=== PATIENT | male | born 2000 | race Caucasian/White ===

== ENCOUNTER 2024-06-30 02:46 | Day surgery (SDC) | payer OTHER ==
[2024-06-30] VITALS (233 sets, daily range): BP systolic 109–159; BP diastolic 50–113
[~2024-06-30] VITALS: Ht 180.3 cm; Wt 66.5 kg
--- NOTE | 2024-06-30 07:00 | NUR ---
Arrival & Pre-treatment Patient arrived to the ANR suite, identification and demographics confirmed. Patient to room 7, AAO, ambulatory, vitals obtained, ID/allergy/fall bands placed, changed into hospital gown, MIRIAM hose, and non-slip socks. Procedure and timeline explained for treatment and discharge. All questions answered and the patient presents no concerns at this time. V/S assessed, call light is near. Dr. Mart telephoned with patient intake information including usage, dose, last dose/time taken and initial vital signs. Patient history and allergies reviewed with MD. Orders received for 10mg PO Valium and 0.3mg PO Clonidine now. Will reassess per protocol and update MD with assessment and vitals.
[2024-06-30] MEDS ORDERED: FAMOTIDINE 20 MG/TAB PO PRN (07:30)
[2024-06-30] MEDS ORDERED: SCOPOLAMINE 1.5 MG DIS TD PRN (07:30)
[2024-06-30] MEDS ORDERED: cloNIDine HCL 0.1 MG/TAB PO PRN (07:30)
[2024-06-30] MEDS ORDERED: LACTATED RINGER'S 1,000 ML IV PRN ×3 (07:30→19:00)
[2024-06-30] MEDS ORDERED: CYANOCOBALAMIN 500 MCG/TAB ( B12) PO PRN (07:30)
[2024-06-30] MEDS ORDERED: diazePAM 5 MG/TAB PO PRN ×2 (07:30→08:30)
[2024-06-30] MEDS ORDERED: PANTOPRAZOLE SODIUM Sesquihydr 40 MG/TAB PO PRN (07:30)
[2024-06-30] MEDS ORDERED: ALBUTEROL SULFATE 2.5 MG VIAL IN PRN (07:30)
--- NOTE | 2024-06-30 07:30 | NUR ---
Patient medicated per MD orders. In addition to Clonidine and Valium, patient received 1000 mcg B12 PO, 20 mg Pepcid PO, and Scopolamine TD patch. Medication indication and education provided prior to adminstration.
[2024-06-30] MEDS ORDERED: ASCORBIC ACID 4,000 MG in SODIUM CHLORIDE 0.9% 1,000 ML IV SCH (08:00)
[2024-06-30 08:36] LABS: BASO% 0.1 % (0-3); HEMATOCRIT 38.2 % (39.0-50.0); HEMOGLOBIN 12.8 g/dl (14.0-18.0); IMMATURE GRANULOCYTES 0.1 % (0.0-5.0); LYMPH% 14.8 % (15-41); MEAN CELL VOLUME 87.2 fL CALC (80.0-100.0); MEAN CORPUSCULAR HGB 29.2 pG CALC (26.0-32.0); MEAN CORPUSCULAR HGB CONC 33.5 g/dL CAL (32.0-36.0); MONO% 6.5 % (2-13); NEUT# 5.44 thou/uL (1.82-7.42); NEUT% 78.5 % (42-76); RED BLOOD COUNT 4.38 mill/uL (4.70-6.10); RED CELL DISTRI WIDTH 12.8 % (11.5-15.5)
[2024-06-30] MEDS ORDERED: XANAX0.25 MG PO (08:48)
[2024-06-30] MEDS ORDERED: STERILE WATER FOR IRRIGATION 1,000 ML BTL IR PRN (08:55)
[2024-06-30] MEDS ORDERED: THIAMINE HCL 100 MG/ML 2ML VIAL IV PRN (08:55)
[2024-06-30] MEDS ORDERED: DiphenhydrAMINE HCL 50 MG/ML SDV IV PRN (08:55)
[2024-06-30] MEDS ORDERED: SUCCINYLCHOLINE CHLORIDE 20 MG/ML 10ML VIAL IV PRN (08:55)
[2024-06-30] MEDS ORDERED: LIDOCAINE HCL 1% (10MG/ML) 100 MG/10 ML MDV VT PRN ×2 (08:55)
[2024-06-30] MEDS ORDERED: MAGNESIUM SULFATE HEPTAHYDRATE 100 ML IV PRN (08:55)
[2024-06-30] MEDS ORDERED: LIDOCAINE HCL 1% (10MG/ML) 100 MG/10 ML MDV IV PRN (08:55)
[2024-06-30] MEDS ORDERED: DEXAMETHASONE SODIUM PHOSPHATE PF 10 MG/ML SDV IV PRN ×2 (08:55→19:00)
[2024-06-30] MEDS ORDERED: diazePAM 5 MG/TAB VT PRN (08:55)
[2024-06-30] MEDS ORDERED: cloNIDine HYDROCHLORIDE 100 MCG/ML 10 ML INJ IV PRN (08:55)
[2024-06-30] MEDS ORDERED: ONDANSETRON HCl 4 MG/2 ML SDV IV PRN ×3 (08:55→19:00)
[2024-06-30] MEDS ORDERED: OCTREOTIDE ACETATE 100 MCG/VIAL SDV SC PRN (08:55)
[2024-06-30] MEDS ORDERED: PROPOFOL 10 MG/ML 100ML VIAL IV PRN (08:55)
[2024-06-30] MEDS ORDERED: cloNIDine HCL 0.1 MG/TAB VT PRN (08:55)
[2024-06-30] MEDS ORDERED: NALTREXONE HCL 50 MG/TAB VT PRN (08:55)
[2024-06-30] MEDS ORDERED: ROCURONIUM BROMIDE 10 MG/ML 5ML VIAL IV PRN (08:55)
[2024-06-30] MEDS ORDERED: PROPOFOL 100 ML IV PRN (08:55)
[2024-06-30] MEDS ORDERED: MIDAZOLAM HCL 2 MG/2 ML VIAL IV PRN (08:55)
--- NOTE | 2024-06-30 09:00 | NUR ---
Patients vital signs within pre-treatment parameters for 1.5 hour recheck. No indication for additional Valium or Clonidine as patient is resting comfortably and vital signs are within range.
[2024-06-30 09:01] LABS: BILIRUBIN, TOTAL 0.5 mg/dL (0.2-1.3); CREATININE 0.8 mg/dL (0.7-1.3); TOTAL PROTEIN 7.6 g/dL (6.3-8.2)
[2024-06-30] MEDS ORDERED: SODIUM CHLORIDE 0.9% 250 ML IV ONE (09:16)
[2024-06-30] MEDS ORDERED: PHENYLEPHRINE HCL 10 MG/ML VIAL ONE (09:16)
[2024-06-30] MEDS ORDERED: POTASSIUM CHLORIDE 10 MEQ/50 ML BAG IV PRN (09:50)
--- NOTE | 2024-06-30 10:30 | NUR ---
Patient resting comfortably in bed. Easily aroused, maintains focus, and drifts back to sleep. No signs of active withdrawal or distress noted at this time. Continuous SPO2, rhythm, and respiratory monitoring initiated. IVF @ 250 mL/HR, room air, VSS.
--- NOTE | 2024-06-30 10:40 | NUR ---
Induction Note Time out performed at 1040. Patient placed on monitors, Barbara hugger, bilateral wrist restraints applied for ET tube protection. Versed 5mg given IV push at 1052 Tourniquet applied to RT arm Lidocaine 100mg given at 1053 IV push followed by Rocoronium 10mg at 1054 IV push and held for 90 seconds. Propofol bolus of 120mg given at 1056 IV push. Succinylcholine 80mg given IV push at 1057. Smooth intubation with 7.5 ETT. Positive CO2. Positive Auscultation for air exchange. Patient placed on ventilator for spontaneous ventilation. Placed on Propofol IV drip at 1058. OG inserted. Positive air on auscultation. Positive gastric content. Stomach washed at this time.
--- NOTE | 2024-06-30 11:05 | NUR ---
OG close note Stomach washed at this time. Naltrexone 50 mg with Clonidine 0.3 mg via OG tube. OG will be clamped for 45 minutes.
[2024-06-30] MEDS ORDERED: CLONIDINE0.1 MG PO (11:39)
[2024-06-30] MEDS ORDERED: NALTREXONE50 MG PO (11:39)
[2024-06-30] MEDS ORDERED: KLONOPIN2 MG PO (11:40)
--- NOTE | 2024-06-30 11:50 | NUR ---
OG open note OG open at this time. Gastric content draining into drainage bag. OG to drain for 45 minutes. Propofol will be titrated down based on patient.
--- NOTE | 2024-06-30 12:35 | NUR ---
OG close note Stomach washed at this time. Naltrexone 50 mg with Clonidine 0.2 mg via OG tube. OG will be clamped for 45 minutes.
--- NOTE | 2024-06-30 14:05 | NUR ---
OG close note Stomach washed at this time. Naltrexone 50 mg with Clonidine 0.2 mg via OG tube. OG will be clamped for 45 minutes.
--- NOTE | 2024-06-30 15:35 | NUR ---
OG close note Stomach washed at this time. Naltrexone 50 mg with Clonidine 0.2 mg via OG tube. OG will be clamped for 45 minutes.
--- NOTE | 2024-06-30 17:45 | NUR ---
Extubation note Closing medications given Benadryl 50mg IV push, Decadron 10mg IV push,Magnesium 4 grams IV, Zofran 8mg IV push, Octreotide 100mcg SC. Stomach washed out prior to extubation. Suctioned gastric content. OG removed. Patient extubated. Propofol Discontinued. Wrist restraints removed. Barbara hugger Removed. See ANR Moderate sedate recovery record for further notes and assessment.
--- NOTE | 2024-06-30 18:16 | NUR ---
Transfer Note Patient transferred to medical-surgical unit private room. Report given to primary nurse at bedside. Head to toe assessment, treatment, medications, I/O, IV access reviewed with primary nurse. All questions answered. IVF to continue at 100 ml/hr, NC @ 2L, no adventitious breath sounds. Safety precautions in place, bed locked and in lowest position, call light in reach. Handoff of care complete at this time.
--- NOTE | 2024-06-30 18:17 | NUR ---
Patient's support person (SP) telephoned with update. All questions answered, no concerns presented at this time. SP agreeable to POC.
--- NOTE | 2024-06-30 18:33 | NUR ---
patient arrived to ms from anr bedside report given from cruz; patient on 2l of ; no s.s of distress; iv site clean and intact running with Lr @100; eye covering applied; call light within reachl bed in lowest postion; safetey measures in place; vitals stable; no complaints
[2024-06-30] MEDS ORDERED: HALOPERIDOL LACTATE 5 MG/ML SDV IV PRN (19:00)
[2024-06-30] MEDS ORDERED: ACETAMINOPHEN 500 MG TAB PO PRN (19:00)
[2024-06-30] MEDS ORDERED: PROMETHAZINE HCL 25 MG in SODIUM CHLORIDE 0.9% 50 ML IV PRN (19:00)
[2024-06-30] MEDS ORDERED: LORazepam 2 MG/ML IV PRN ×2 (19:00)
[2024-06-30] MEDS ORDERED: ACETAMINOPHEN 1,000 MG/100 ML VIAL IV PRN (19:00)
[2024-06-30] MEDS ORDERED: PROMETHAZINE HCL 12.5 MG in SODIUM CHLORIDE 0.9% 50 ML IV PRN (19:00)
[2024-06-30] MEDS ORDERED: KETOROLAC TROMETHAMINE 30 MG/ML SDV IV PRN (19:00)
[2024-06-30] MEDS ORDERED: PATIENT' OWN MED CONTROLLED 1 EA DOSE IV PRN (21:00)
[2024-06-30] MEDS ORDERED: clonazePAM 1 MG/TAB PO PRN (23:00)
[2024-06-30] MEDS ORDERED: cloNIDine HCL 0.1 MG/TAB PO SCH (23:00)
--- NOTE | 2024-07-01 | NUR ---
ADMINISTERED SCHEDULED MEDS PER EMAR AND PT TOLERATED WELL. PT IS AROUSABLE TO SPEECH, A/OX2 AND ABLE TO MAKE NEEDS KNOWN. DENIES ANY N/V/P AT THIS TIME. LAYING IN BED SUPINE, RESTING COMFORTABLY ON RM AIR. VSS. NO S/S OF DISTRESS. BED ALARM ON AND SAFETY PRECAUTIONS IN PLACE.
[2024-07-01] MEDS ORDERED: cloNIDine HCL 0.1 MG/TAB PO PRN (04:00)
[2024-07-01] MEDS ORDERED: clonazePAM 1 MG/TAB PO PRN ×2 (04:00→08:00)
[2024-07-01] MEDS ORDERED: NALTREXONE HCL 50 MG/TAB PO SCH (04:00)
[2024-07-01 04:09] VITALS: BP 122/76
[2024-07-01 04:26] LABS: BASO% 0.1 % (0-3); HEMATOCRIT 35.2 % (39.0-50.0); HEMOGLOBIN 12.2 g/dl (14.0-18.0); IMMATURE GRANULOCYTES 0.1 % (0.0-5.0); LYMPH% 8.2 % (15-41); MEAN CELL VOLUME 85.6 fL CALC (80.0-100.0); MEAN CORPUSCULAR HGB 29.7 pG CALC (26.0-32.0); MEAN CORPUSCULAR HGB CONC 34.7 g/dL CAL (32.0-36.0); NEUT# 6.68 thou/uL (1.82-7.42); NEUT% 88.6 % (42-76); RED BLOOD COUNT 4.11 mill/uL (4.70-6.10); RED CELL DISTRI WIDTH 12.5 % (11.5-15.5)
[2024-07-01 04:28] LABS: ALBUMIN 4.5 g/dL (3.2-5.0); BILIRUBIN, TOTAL 0.6 mg/dL (0.2-1.3); CREATININE 0.8 mg/dL (0.7-1.3); POTASSIUM 3.8 mmol/l (3.5-5.1); TOTAL PROTEIN 6.9 g/dL (6.3-8.2)
--- NOTE | 2024-07-01 04:28 | NUR ---
ADMINISTERED SCHEDULED MEDS PER EMAR, PT TOLERATED WELL. PT IS A/OX3, RM AIR. DENIES ANY N/V/P. VSS. NO S/S OF DISTRESS. BED ALARM ON AND SAFETY PRECAUTIONS IN PLACE.
--- NOTE | 2024-07-01 06:40 | NUR ---
ROUNDED PN PT WITH TRAIN OPERATIONS MANAGER NURSE SAMUEL. PT RESTING COMFORTABLY. NO ISSUES OVERNIGHT.
[2024-07-01] MEDS ORDERED: cloNIDine HCL 0.1 MG/TAB PO SCH (08:00)
[2024-07-01] MEDS ORDERED: PANTOPRAZOLE SODIUM Sesquihydr 40 MG/TAB PO SCH (08:00)
[2024-07-01] MEDS ORDERED: ACETAMINOPHEN 325 MG/TAB PO SCH (08:00)
[2024-07-01 08:19] VITALS: BP 133/81
--- NOTE | 2024-07-01 08:28 | NUR ---
PATIENT A/O X2; ROOM AIR; BREATHING UNLABORED AND EVEN; NO S.S OF DISTRESS; PATIENT VOMITED ONE TIME AND MEDICATED PER EMAR; DENIED ANY PAIN; IV SITE CLEAN AND INTACT RUNNING WITH LR @100; ENCOURAGED TO PATIENT TRY TO EAT BREAKFAST; PATIENT TOLERATED MEDICATIONS WITH NO ISSUES; CALL LIGHT WITH NO ISSUES; VERBALIZED UNDERSTANDING ON HOW TO USE, PERSONAL ITEMS IN ANR LOCKER; SAFTY MEASURES IN PLACE
[2024-07-01] MEDS ORDERED: ACETAMINOPHEN 500 MG TAB PO PRN (09:00)
[2024-07-01] MEDS ORDERED: Cholecalciferol 2,000 UNIT/TAB PO PRN (09:00)
[2024-07-01] MEDS ORDERED: MAGNESIUM OXIDE 400 MG/TAB PO PRN (09:00)
--- NOTE | 2024-07-01 11:29 | NUR ---
TALKED TO PROVIDER ABOUT POTASSIUM UNDER RANGE; AWAITING [facility]
[2024-07-01] MEDS ORDERED: POTASSIUM CHLORIDE 20 MEQ/TAB PO SCH (12:30)
--- NOTE | 2024-07-01 12:30 | NUR ---
PATIENT RESTING IN BED; ROOM AIR; BREATHING UNLABORED AND EVEN; DENIED ANY PAIN; DENIED ANY N/D/V AT TIS TIME; IV SITE CLEAN AND INTACT RUNNING WITH LR @100; PATIENT ATTEMPTING TO EAT SOME OF HIS LUNCH; NO S.S OF DISTRESS AT THIS TIME; NO COMPLAINTS AT THIS TIME; CALL LIGHT WITHIN REACH; BED IN LOWEST POSTION; SAFETY MEASURES IN PLACE
--- NOTE | 2024-07-01 13:55 | NUR ---
PATIENT IN SHOWER AT THIS TIME
--- NOTE | 2024-07-01 15:22 | NUR ---
IV site discontinued, cath intact. No edema , no redness, voices no discomfort. Discharge instructions given. Patient verbalizes understanding of same. Discharged in stable condition via Ambulatory to Home with family. All belongings sent with pt.
== END 2024-07-01 15:22 | disposition home or self-care (01) | DRG 897 ==
LOC: MS2 02:46 → ANR 02:46 → MS2 17:12 → ANR 07-01 08:00
PROVIDERS: ATTEND Anesthesiology
DX: F11.20 Opioid dependence, uncomplicated (principal)
CPT/HCPCS: J1100; J2354; J3475; J3490